=== PATIENT | female | born 1940 | race Caucasian/White ===

== ENCOUNTER → 2020-04-14 | Outpatient (CLI) | payer OTHER ==
[~2020-04-14] MED LIST: PERCOCET 5/325 T1 EA PO
== END ==
LOC: KOH-I 13:39
DX: M79.642 Pain in left hand (principal); M79.641 Pain in right hand; M19.042 Primary osteoarthritis, left hand; M19.041 Primary osteoarthritis, right hand
CPT/HCPCS: 73130

== ENCOUNTER 2020-06-06 16:01 | Emergency (ER) | payer OTHER | END 2020-06-06 20:19 | disposition home or self-care (01) | LOC: ER1 16:01 | DX: S00.83XA Contusion of other part of head, initial encounter (principal); S00.432A Contusion of left ear, initial encounter; I10 Essential (primary) hypertension; Z90.710 Acquired absence of both cervix and uterus; W19.XXXA Unspecified fall, initial encounter; Y92.410 Unspecified street and highway as the place of occurrence of the external cause; Z23 Encounter for immunization | CPT/HCPCS: 70450; 70486; 90471; 90715; 99283 ==

== ENCOUNTER → 2020-10-07 | Outpatient (CLI) | payer OTHER | LOC: EMI 14:37 | DX: G44.009 Cluster headache syndrome, unspecified, not intractable (principal); G31.9 Degenerative disease of nervous system, unspecified | CPT/HCPCS: 70553; A9577 ==

== ENCOUNTER → 2021-10-19 | Outpatient (CLI) | payer OTHER | LOC: KOH-I 14:20 | DX: M25.572 Pain in left ankle and joints of left foot (principal) | CPT/HCPCS: 73610 ==

== ENCOUNTER → 2021-11-21 | Outpatient (CLI) | payer OTHER | LOC: KOH-I 08:43 | DX: M25.572 Pain in left ankle and joints of left foot (principal); M79.89 Other specified soft tissue disorders | CPT/HCPCS: 73610 ==